=== PATIENT | female | born 1940 | race African-American/Black ===

== ENCOUNTER 2018-08-30 16:56 | Emergency (ER) | payer MEDICARE, OTHER ==
[~2018-08-30] VITALS: Ht 162.6 cm; Wt 53.5 kg
--- NOTE | ~2018-08-30 | EKG ---
[place] [address] [facility] [place] [address] ELECTROCARDIOGRAM REPORT Name: TIFFANIE HARMON [id number] Admission: 08/30/18 Attend Phys: Discharge: 08/30/18 Date of : 44 Report #: [id number] THIS REPORT FOR: //name// [facility] ED Test Date: 2018-08-30 Test Time: 17:39:46 Pat Name: TIFFANIE LEVIN Department: Room: Gender: F Big 6 Dealer: MARSHA : 1940 Requested By: Charbel Zhou Order Number: [id number] MD: Davide Olmstead Measurements Intervals [place] Rate: 103 P: 76 CT: 173 QRS: 71 QRSD: 100 T: 60 QT: 334 QTc: 437 Interpretive Statements Sinus tachycardia Nonspecific ST segment abnormality No previous ECG available for comparison Electronically Signed On 08-31-2018 7:59:18 SALES PROMOTION MANAGER by Davide Olmstead [email or web address] <ELECTRONICALLY SIGNED> By: Davide Olmstead MD, [facility] 08/31/18 0759 [id number] 1739 Davide Olmstead MD, FACC /EPI
[~2018-08-30 16:56] MED LIST: ACCUNEB SO1.25 MG/1 INH; ADVAIR HFA 230M12 GM INH; CARDIZEM CD120 MG PO; CYCLOBENZAPRINE5 MG PO; ESTRADIOL 1 MG T1 M1 PO; IBUPROFEN 600600 M1 PO; LISINOPRIL10 MG PO; NORCO 5-325 TA1 EACH PO; SPIRIVA INH; TOPROL XL100 MG PO; UNICOMPLEX M TA1 TA1 PO; VALIUM5 MG PO; VERAPAMIL ER100 MG PO
[2018-08-30 17:50] LABS: HEMATOCRIT 34.9 % (37.0-47.0); HEMOGLOBIN 11.7 gm/dL (12.0-15.0); MCH 29.9 pg (26.0-34.0); MCHC 33.4 g/dL (28.0-37.0); MCV 89.6 fL (80.0-100.0); PLATELET COUNT 210 thou/uL (150-400); RDW 14.4 % (10.5-14.5); WBC 7.1 thou/uL (4.0-11.0)
[2018-08-30 17:54] LABS: ANION GAP 5 mmol/L (7-16); BUN 29 mg/dL (7-18); CALCIUM 9.9 mg/dL (8.5-10.1); CHLORIDE 102 mmol/L (98-107); CO2 31 mmol/L (21-32); CREATININE 1.4 mg/dL (0.6-1.0); GLUCOSE 196 mg/dL (74-106); POTASSIUM 3.7 mmol/L (3.5-5.1); SODIUM 138 mmol/L (136-145)
[2018-08-30 18:02] LABS: ALBUMIN 3.9 g/dL (3.4-5.0); MAGNESIUM 2.1 mg/dL (1.8-2.4); SGOT 20 U/L (15-37); SGPT 28 U/L (30-65); TOTAL BILIRUBIN 0.2 mg/dL (<0.1-1.0); TOTAL PROTEIN 8.1 g/dL (6.4-8.2); TROPONIN-I <0.06 ng/mL (<0.06)
[2018-08-30 18:31] LABS: ABSOLUTE NEUTROPHILS 2.8 thou/uL (1.4-8.2)
[2018-08-30] MEDS ORDERED: NORCO 5-325 TA1 EACH PO (19:08)
[2018-08-30 19:25] VITALS: BP 155/108
== END 2018-08-30 19:25 | disposition home or self-care (01) ==
LOC: ER 16:56
PROVIDERS: Emergency Medicine
DX: M54.6 Pain in thoracic spine (principal); G89.29 Other chronic pain; J44.9 Chronic obstructive pulmonary disease, unspecified; I10 Essential (primary) hypertension; E11.9 Type 2 diabetes mellitus without complications; Z90.49 Acquired absence of other specified parts of digestive tract; Z88.5 Allergy status to narcotic agent; Z90.710 Acquired absence of both cervix and uterus

== ENCOUNTER 2018-11-08 17:48 | Emergency (ER) | payer MEDICARE, OTHER ==
[~2018-11-08] VITALS: Ht 162.6 cm; Wt 53.5 kg
[2018-11-08 19:02] LABS: ABSOLUTE NEUTROPHILS 4.9 thou/uL (1.4-8.2); BASOPHILS 0.6 % (0.0-2.0); EOSINOPHILS 1.5 % (0.0-3.0); HEMATOCRIT 35.5 % (37.0-47.0); HEMOGLOBIN 11.7 gm/dL (12.0-15.0); LYMPHOCYTES 33.8 % (24.0-44.0); MCH 29.6 pg (26.0-34.0); MCV 89.6 fL (80.0-100.0); PLATELET COUNT 232 thou/uL (150-400); POLYS 53.1 % (36.0-66.0); RBC 3.96 mil/uL (4.20-5.00); RDW 13.9 % (10.5-14.5); WBC 9.3 thou/uL (4.0-11.0)
--- NOTE | 2018-11-08 19:12 | EKG ---
[place] [address] [place] [address] ELECTROCARDIOGRAM REPORT Name: TIFFANIE HARMON Room #: [facility]#: [id number] Admission: 11/08/18 Attend Phys: Discharge: Date of : 44 Report #: [id number] THIS REPORT FOR: //name// [facility] ED Test Date: 2018-11-08 Test Time: 18:03:12 Pat Name: TIFFANIE LEVIN Department: Room: Gender: F Ob Gyn Physician Assistant: [place] : 1940 Requested By: Charbel Zhou Order Number: [id number] MD: Dane Crews Measurements Intervals [place] Rate: 84 P: 72 AR: 187 QRS: 72 QRSD: 92 T: 70 QT: 373 QTc: 441 Interpretive Statements Sinus rhythm AC noise Baseline wander Borderline voltage for LVH Compared to ECG 08/30/2018 17:39:46 Sinus tachycardia no longer present Electronically Signed On 11-08-2018 19:12:22 CHANNEL REBUILDER by Dane Crews [email or web address] <ELECTRONICALLY SIGNED> By: Dane Crews MD 11/08/181911 02 02 Dane Crews MD /EPI
[2018-11-08 19:14] LABS: ANION GAP 4 mmol/L (7-16); BUN 23 mg/dL (7-18); CALCIUM 9.9 mg/dL (8.5-10.1); CHLORIDE 103 mmol/L (98-107); CO2 34 mmol/L (21-32); CREATININE 1.3 mg/dL (0.6-1.0); GLUCOSE 134 mg/dL (74-106); POTASSIUM 3.5 mmol/L (3.5-5.1); SODIUM 141 mmol/L (136-145)
[2018-11-08 19:22] LABS: ALBUMIN 3.6 g/dL (3.4-5.0); SGOT 18 U/L (15-37); SGPT 26 U/L (30-65); TOTAL BILIRUBIN 0.2 mg/dL (<0.1-1.0); TOTAL PROTEIN 8.1 g/dL (6.4-8.2); TROPONIN-I <0.06 ng/mL (<0.06)
[2018-11-08] MEDS ORDERED: IBUPROFEN 400400 M1 PO (20:33)
[2018-11-08] MEDS ORDERED: NORCO 5-325 TA1 EACH PO (20:34)
[2018-11-08 20:55] VITALS: BP 163/90
== END 2018-11-08 20:55 | disposition home or self-care (01) ==
LOC: ER 17:48
PROVIDERS: Emergency Medicine
DX: M75.52 Bursitis of left shoulder (principal); M54.9 Dorsalgia, unspecified; G89.29 Other chronic pain; J44.9 Chronic obstructive pulmonary disease, unspecified; I10 Essential (primary) hypertension; E11.9 Type 2 diabetes mellitus without complications; Z90.49 Acquired absence of other specified parts of digestive tract; Z88.5 Allergy status to narcotic agent; Z90.710 Acquired absence of both cervix and uterus

== ENCOUNTER 2019-02-27 16:12 | Emergency (ER) | payer MEDICARE, OTHER ==
[~2019-02-27] VITALS: Ht 162.6 cm; Wt 53.5 kg
[~2019-02-27 16:12] MED LIST changes: +IBUPROFEN 400400 M1 PO
[2019-02-27] MEDS ORDERED: TYLENOL EXTRA500 MG PO (17:31)
[2019-02-27] MEDS ORDERED: ROBAXIN 750 MG750 MG PO (17:31)
[2019-02-27 17:43] VITALS: BP 181/84
--- NOTE | 2019-02-28 08:36 | EKG ---
[place] [address] [facility] [place] [address] ELECTROCARDIOGRAM REPORT Name: TIFFANIE HARMON Room #: DEP [facility]#: [id number] ������������������ Admission: 02/27/19 ������������������ Attend Phys: Discharge: 02/27/19 ������������������ Date of : 44 Report #: [id number] ����������������������������������������������������������������� [id number] THIS REPORT FOR: //name// [facility] ED Test Date: 2019-02-27 Test Time: 17:31:56 Pat Name: TIFFANIE LEVIN Department: Room: Gender: F Steaming Cabinet Tender: kf : 1940 Requested By: Rip Ventura Order Number: [id number] MD: Davide Olmstead Measurements Intervals [place] Rate: 115 P: 60 NM: 150 QRS: 66 QRSD: 92 T: 50 QT: 324 QTc: 448 Interpretive Statements Sinus tachycardia Nonspecific ST segment abnormality Compared to ECG 11/08/2018 18:03:12 Heart rate has increased Electronically Signed On 02-28-2019 8:36:42 CDT by Davide Olmstead [email or web address] ��������������������������������������������� <ELECTRONICALLY SIGNED> ���������������������������������������� By: Davide Olmstead MD, [facility] ��������������������������������������������� 02/28/19 0836 [id number] 30 Davide Olmstead MD, [facility] /EPI
== END 2019-02-27 18:40 | disposition home or self-care (01) ==
LOC: ER 16:12
DX: M54.6 Pain in thoracic spine (principal); M54.5 Low back pain; G89.29 Other chronic pain; J44.9 Chronic obstructive pulmonary disease, unspecified; I10 Essential (primary) hypertension; E11.9 Type 2 diabetes mellitus without complications; Z90.49 Acquired absence of other specified parts of digestive tract; Z90.710 Acquired absence of both cervix and uterus; Z88.5 Allergy status to narcotic agent

== ENCOUNTER 2019-07-05 11:54 | Emergency (ER) | payer MEDICARE, OTHER ==
[~2019-07-05] VITALS: Ht 162.6 cm; Wt 53.5 kg
[~2019-07-05 11:54] MED LIST changes: +ROBAXIN 750 MG750 MG PO; +TYLENOL EXTRA500 MG PO
[2019-07-05] MEDS ORDERED: ALPRAZOLAM 0.50.5 M1 PO (12:12)
[2019-07-05] MEDS ORDERED: ZANTAC 150MG T150 M1 PO (12:12)
[2019-07-05] MEDS ORDERED: TYLENOL EXTRA500 MG PO (14:15)
[2019-07-05 15:40] VITALS: BP 137/74
== END 2019-07-05 15:40 | disposition home or self-care (01) ==
LOC: ER 11:54
DX: S00.11XA Contusion of right eyelid and periocular area, initial encounter (principal); S09.90XA Unspecified injury of head, initial encounter; I10 Essential (primary) hypertension; E11.9 Type 2 diabetes mellitus without complications; J44.9 Chronic obstructive pulmonary disease, unspecified; M54.9 Dorsalgia, unspecified; G89.29 Other chronic pain; Z90.49 Acquired absence of other specified parts of digestive tract; Z90.710 Acquired absence of both cervix and uterus; Z88.6 Allergy status to analgesic agent; W22.03XA Walked into furniture, initial encounter; Y93.89 Activity, other specified; Y92.512 Supermarket, store or market as the place of occurrence of the external cause; Y99.8 Other external cause status